=== PATIENT | female | born 1975 | race Caucasian/White ===

== ENCOUNTER → 2016-08-15 | Outpatient (CLI) | payer MEDICAID | LOC: OD 10:33 | PROVIDERS: ATTEND Family Medicine | DX: M25.562 Pain in left knee (principal); M25.561 Pain in right knee ==

== ENCOUNTER 2016-08-16 11:48 | Emergency (ER) | payer MEDICAID ==
[2016-08-16] MEDS ORDERED: SILVER SULFADIAZINE 1% CREAM 50 GM TP ONE (12:52)
[2016-08-16] MEDS ORDERED: OXYCODONE-ACETAMINOPHEN 5-325 MG TABLET PO ONE (12:52)
[2016-08-16] MEDS ORDERED: DIPH/PERTUSS(ACELL)/TETANUS VAC/PF 0.5 ML SYR (>=10YO) IM ONE (12:52)
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
[2016-08-16 13:59] VITALS: BP 114/81
== END 2016-08-16 13:50 | disposition home or self-care (01) ==
LOC: ER 11:48
DX: T24.221A Burn of second degree of right knee, initial encounter (principal); X19.XXXA Contact with other heat and hot substances, initial encounter; Y93.89 Activity, other specified; F17.210 Nicotine dependence, cigarettes, uncomplicated
CPT/HCPCS: 99283; 90471; 90715; J3490

== ENCOUNTER → 2016-08-23 | Outpatient (CLI) | payer MEDICAID | LOC: RAD 15:19 | PROVIDERS: ATTEND Family Medicine | DX: M25.561 Pain in right knee (principal); M25.562 Pain in left knee; M22.42 Chondromalacia patellae, left knee ==

== ENCOUNTER → 2017-01-16 | Outpatient (CLI) | payer MEDICAID ==
[2017-01-16 13:02] LABS: ANION GAP 7 (5-19); BLOOD UREA NITROGEN 14 mg/dL (7-20); CALCIUM 9.1 mg/dL (8.4-10.2); CARBON DIOXIDE 28 mmol/L (22-30); CHLORIDE 105 mmol/L (98-107); CHOLESTEROL 177.37 mg/dL (0-200); CREATININE RESULT 0.85 mg/dL (0.52-1.25); Direct HDL 48 mg/dL (>40); GLUCOSE 81 mg/dL (75-110); POTASSIUM 4.6 mmol/L (3.6-5.0); SODIUM 139.9 mmol/L (137-145); TRIGLYCERIDES 113 mg/dL (<150)
[2017-01-16 13:14] LABS: DIRECT LDL 88 mg/dL (<100)
== END ==
LOC: OD 11:15
PROVIDERS: ATTEND Family Medicine
DX: I10 Essential (primary) hypertension (principal); Z79.899 Other long term (current) drug therapy
CPT/HCPCS: 36415; 80048; 80061; 83036; 84443

== ENCOUNTER 2017-04-06 17:22 | Emergency (ER) | payer MEDICAID ==
[2017-04-06 17:33] VITALS: BP 160/89
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
--- NOTE | 2017-04-06 18:22 | RADIOLOGY REPORT (SQ) ---
EXAM DESCRIPTION: KNEE LEFT 3 VIEWS COMPLETED DATE/TIME: 04/06/2017 6:06 pm REASON FOR STUDY: fall knee pn COMPARISON: None. NUMBER OF VIEWS: Three views. TECHNIQUE: AP, lateral, and sunrise patella radiographic images acquired of the left knee. LIMITATIONS: None. FINDINGS: MINERALIZATION: Normal. BONES: No acute fracture or dislocation. No worrisome bone lesions. JOINT: Possible loose body. SOFT TISSUES: No soft tissue swelling. No radio-opaque foreign body. OTHER: No other significant finding. IMPRESSION: No acute findings. Possible loose body in the joint. TECHNICAL DOCUMENTATION: JOB ID: [id number] [employer]- All Rights Reserved
== END 2017-04-06 18:33 | disposition home or self-care (01) ==
LOC: ER 17:22
DX: S89.92XA Unspecified injury of left lower leg, initial encounter (principal); M25.562 Pain in left knee; W19.XXXA Unspecified fall, initial encounter; Z87.891 Personal history of nicotine dependence
CPT/HCPCS: 99283

== ENCOUNTER 2017-09-10 14:50 | Emergency (ER) | payer MEDICAID ==
[2017-09-10] MEDS ORDERED: OXYCODONE HCL IR 5 MG TABLET PO ONE (15:22)
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
--- NOTE | 2017-09-10 15:54 | RADIOLOGY REPORT (SQ) ---
EXAM DESCRIPTION: HAND RIGHT 3 VIEWS COMPLETED DATE/TIME: 09/10/2017 3:41 pm REASON FOR STUDY: cut hand on glass; eval foreign body COMPARISON: None. EXAM PARAMETERS: NUMBER OF VIEWS: Three views. TECHNIQUE: AP, lateral and oblique radiographic images acquired of the right hand. LIMITATIONS: None. FINDINGS: BONES: No acute fracture or bony abnormality identified. JOINTS: No effusions. SOFT TISSUES: Soft tissue laceration noted at the level of the right 1st metacarpal phalangeal joint. OTHER: No other significant finding. IMPRESSION: Soft tissue laceration adjacent to right 1st metacarpophalangeal joint. Otherwise, norm al right hand. TECHNICAL DOCUMENTATION: JOB ID: [id number] SC-[id number] 2010 [employer]- All Rights Reserved Reading location - IP/workstation name: [email or web address]
[2017-09-10] MEDS ORDERED: CEPHALEXIN 500 MG CAPSULE PO ONE (16:10)
[2017-09-10] MEDS ORDERED: LIDOCAINE 1% INJ-PF (10 MG/ML) 30 ML SDV INJ ONE (16:10)
[2017-09-10] MEDS ORDERED: DIPH/PERTUSS(ACELL)/TETANUS VAC/PF 0.5 ML SYR (>=10YO) IM ONE (16:10)
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
[2017-09-10 17:43] VITALS: BP 134/95
== END 2017-09-10 17:43 | disposition home or self-care (01) ==
LOC: ER 14:50
PROC: 0HQFXZZ Repair Right Hand Skin, External Approach (ICD-10-PCS; principal; 2017-09-10)
DX: S61.011A Laceration without foreign body of right thumb without damage to nail, initial encounter (principal); W25.XXXA Contact with sharp glass, initial encounter; F17.200 Nicotine dependence, unspecified, uncomplicated; Z23 Encounter for immunization
CPT/HCPCS: 99283; 90471; 73130; 90715; 12001; J3490 ×2; L3908

== ENCOUNTER → 2017-09-15 | Outpatient (CLI) | payer MEDICAID ==
--- NOTE | 2017-09-15 11:05 | EKG REPORT ---
SEVERITY:- NORMAL ECG - SINUS RHYTHM : Confirmed by: Chris Kennedy 15-Sep-2017 11:05:01
[2017-09-15 11:58] LABS: ABSOLUTE EOSINOPHILS # (AUTO) 0.2 10^3/uL (0.0-0.6); ABSOLUTE LYMPHOCYTES (AUTO) 2.3 10^3/uL (0.5-4.7); ABSOLUTE MONOCYTES (AUTO) 0.6 10^3/uL (0.1-1.4); ABSOLUTE NEUT (AUTO) 2.5 10^3/uL (1.7-8.2); BASOPHILS % (AUTO) 0.8 % (0-2); EOSINOPHILS % (AUTO) 2.8 % (0-6); HEMATOCRIT 46.7 % (36.0-47.0); LYMPHOCYTES % (AUTO) 41.3 % (13-45); MEAN CORPUSCULAR HEMOGLOBIN 31.6 pg (27.0-33.4); MEAN CORPUSCULAR HGB CONC 34.3 g/dL (32.0-36.0); MEAN CORPUSCULAR VOLUME 92 fl (80-97); MONOCYTES % (AUTO) 9.9 % (3-13); PLATELET COUNT 237 10^3/uL (150-450); RED BLOOD COUNT 5.07 10^6/uL (3.72-5.28); RED CELL DISTRIBUTION WIDTH 13.1 % (11.5-14.0); SEGMENTED NEUTROPHILS % (AUTO) 45.2 % (42-78); TOTAL CELLS COUNTED % (AUTO) 100 %; WHITE BLOOD COUNT 5.6 10^3/uL (4.0-10.5)
[2017-09-15 12:31] LABS: ANION GAP 8 (5-19); BLOOD UREA NITROGEN 8 mg/dL (7-20); CALCIUM 9.2 mg/dL (8.4-10.2); CARBON DIOXIDE 29 mmol/L (22-30); CHLORIDE 107 mmol/L (98-107); GLUCOSE 73 mg/dL (75-110); POTASSIUM 4.3 mmol/L (3.6-5.0); SODIUM 143.6 mmol/L (137-145)
== END ==
LOC: OD 10:32
PROVIDERS: ATTEND Orthopaedic Surgery
DX: Z01.810 Encounter for preprocedural cardiovascular examination (principal); Z01.89 Encounter for other specified special examinations
CPT/HCPCS: 36415; 80048; 85025; 93005; 93010

== ENCOUNTER 2017-12-06 20:39 | Emergency (ER) | payer OTHER, MEDICAID ==
[2017-12-06] MEDS ORDERED: HYDROCODONE/ACETAMINOPHEN 5-325 MG TABLET PO ONE (22:22)
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
[2017-12-06] MEDS ORDERED: HYDROCODONE/ACETAMINOPHEN 5-325 MG (6 TAB/ER DISP) PO PRN (23:34)
[2017-12-06 23:50] VITALS: BP 146/79
== END 2017-12-06 23:48 | disposition home or self-care (01) ==
LOC: ER 20:39
DX: S90.02XA Contusion of left ankle, initial encounter (principal); S80.12XA Contusion of left lower leg, initial encounter; M54.5 Low back pain; R22.0 Localized swelling, mass and lump, head; M25.552 Pain in left hip; F17.200 Nicotine dependence, unspecified, uncomplicated; V44.5XXA Car driver injured in collision with heavy transport vehicle or bus in traffic accident, initial encounter; Z98.890 Other specified postprocedural states
CPT/HCPCS: 72110; 99283

== ENCOUNTER 2018-11-20 18:53 | Emergency (ER) | payer MEDICAID, OTHER ==
[2018-11-20 19:14] VITALS: BP 145/85
[2018-11-20] MEDS ORDERED: KETOROLAC TROMETHAMINE 60 MG/2 ML SDV IM ONE (19:43)
[2018-11-20] MEDS ORDERED: METHOCARBAMOL 500 MG TABLET PO ONE (19:43)
[2018-11-20] MEDS ORDERED: DEXAMETHASONE SOD PHOS INJ 10 MG/1 ML VIAL IM ONE (19:43)
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
[2018-11-20 20:23] LABS: APPEARANCE,URINE SLIGHTLY-CLOUDY; BILIRUBIN,URINE NEGATIVE (NEGATIVE); COLOR,URINE YELLOW; GLUCOSE, URINE NEGATIVE (NEGATIVE); KETONES,URINE NEGATIVE (NEGATIVE); LEUKOCYTE ESTERASE,URINE TRACE (NEGATIVE); NITRITE,URINE NEGATIVE (NEGATIVE); PROTEIN,URINE NEGATIVE (NEGATIVE); URINE SPECIFIC GRAVITY 1.014; UROBILINOGEN,URINE NEGATIVE mg/dL (<2.0)
--- NOTE | 2018-11-20 20:28 | RADIOLOGY REPORT (SQ) ---
5 VIEWS OF LUMBAR SPINE EXAM DATE: 11/20/2018 7:36 PM CDT HISTORY: Lower back pain. COMPARISON: None. FINDINGS: No acute compression fracture is seen. The lumbar lordosis is preserved. Mild degenerative disc disease L5-S1 with facet DJD and grade 1 anterolisthesis at this level. The sacroiliac joints are intact. No evidence of spondylolysis on the oblique views. IMPRESSION: No acute compression fracture of the lumbar spine is seen. Mild degenerative disc disease at L5-S1 with facet DJD.
== END 2018-11-20 21:21 | disposition home or self-care (01) ==
LOC: ER 18:53
DX: M54.42 Lumbago with sciatica, left side (principal); N39.0 Urinary tract infection, site not specified; F17.210 Nicotine dependence, cigarettes, uncomplicated; Z90.49 Acquired absence of other specified parts of digestive tract; Z98.51 Tubal ligation status
CPT/HCPCS: 99283; 96372; 87086; 81025; 81001; 72110; J1885; J3490; J1100